=== PATIENT | male | born 2005 | race African-American/Black ===

== ENCOUNTER 2024-07-05 22:43 | Inpatient (IN) ==
[2024-07-06 00:33] LABS: ABS Lymphocytes 1.3 10^3/uL (1.0-4.8); ABS Monocytes 0.6 10^3/uL (0.0-1.1); ABS Neutrophils 10.7 10^3/uL (1.5-7.6); ABS Nucleated RBC 0.01 10^3/ul; Eosinophil % 0.1 %; Hematocrit 44.8 % (38-53); Hemoglobin 14.7 g/dL (13.2-16.3); Mean Corpuscular Hemoglobin 30.9 pg (27-33); Mean Corpuscular Hgb Conc 32.8 g/dL (31-36); Mean Platelet Volume 7.5 fL (7.5-11.2); Nucleated Red Blood Cells % 0.1 %/100WBC (0.0-0.8); Platelet Count 233 10^3/uL (150-450); Red Blood Count 4.77 10^6/uL (4.06-5.63); Red Cell Distribution Width 13.5 % (12-17); White Blood Count 12.6 10^3/uL (3.6-10.2)
[2024-07-06 01:34] LABS: ALT 13 U/L (7-52); AST 42 U/L (13-39); Albumin 4.7 g/dL (3.2-5.2); Albumin/Globulin Ratio 1.4 (1-3); Alcohol, S < 13 mg/dL (<13); Alkaline Phosphatase 62 U/L (35-149); Anion Gap 12 mmol/L (2-16); Blood Urea Nitrogen 15 mg/dL (6-24); C Reactive Protein 76.58 mg/L (<8.01); CO2 Carbon Dioxide 23 mmol/L (22-32); Calcium 9.6 mg/dL (8.6-10.3); Chloride 97 mmol/L (101-111); Globulin 3.3 g/dL (2-4); Glucose 112 mg/dL (70-100); Potassium 3.9 mmol/L (3.5-5.0); Sodium 132 mmol/L (135-145); Total Bilirubin 1.2 mg/dL (0.2-1.0); eGFR CKD-EPI 88.8 (>60)
[2024-07-06 01:36] LABS: Rapid Strep Molecular Negative (Negative)
[2024-07-06] MEDS: Acetaminophen IV 1 GM/100ML 1,000 MG/100 ML BAG IV ONE (01:49)
[2024-07-06] MEDS: Ondansetron 4 mg VIAL 2 MG/ML 2 ml VIAL IV ONE (01:49)
[2024-07-06] MEDS: Lactated Ringers 1000 ml BAG 1,000 ML IV ONE (01:49)
[2024-07-06 03:45] LABS: Body Fluid Source Cerebral Spinal
[2024-07-06] MEDS ORDERED: Vancomycin 1,000 MG VIAL IVPB SCH (04:00)
[2024-07-06] MEDS: cefTRIAXone 2 gm/50 mL D5W 2 GM/50 ML BAG IV ONE (04:08)
[2024-07-06 04:20] LABS: CSF Glucose 73 mg/dL (40-70)
[2024-07-06 04:42] LABS: Body Fluid Appearance Clear; Body Fluid Color Colorless; CSF Tube # 4
[2024-07-06] MEDS: Vancomycin 1,000 MG - ED ONCE IVPB ONE (04:56)
[2024-07-06 05:12] LABS: CSF Body Fluid WBC 2 /mcL
[2024-07-06 05:27] LABS: Body Fluid Mono 10 %; Body Fluid Total Cells Counted 10
[2024-07-06 05:51] LABS: Urine Appearance Clear; Urine Bilirubin Negative (Negative); Urine Blood Negative (Negative); Urine Color Light-Yellow; Urine Glucose Negative (Negative); Urine Ketones Negative (Negative); Urine Nitrite Negative (Negative); Urine Protein Trace (Negative); Urine Specific Gravity 1.015 (1.002-1.030); Urine Urobilinogen Negative (Negative)
[2024-07-06 06:04] LABS: Urine Benzodiazepine Screen None Detected (None Detect); Urine Cannabinoids Screen Presumptive Positive (None Detect); Urine Opiates Screen None Detected (None Detect)
[2024-07-06 08:38] LABS: Direct Bilirubin 0.2 mg/dL (0.03-0.18)
[2024-07-06 09:07] LABS: Hematocrit 43.1 % (38-53); Hemoglobin 14.4 g/dL (13.2-16.3); Mean Corpuscular Hemoglobin 31.3 pg (27-33); Mean Corpuscular Hgb Conc 33.4 g/dL (31-36); Mean Corpuscular Volume 93.7 fL (80-97); Mean Platelet Volume 7.9 fL (7.5-11.2); Platelet Count 224 10^3/uL (150-450); Red Blood Count 4.59 10^6/uL (4.06-5.63); Red Cell Distribution Width 13.1 % (12-17)
[2024-07-06] MEDS: Lactated Ringers 1000 ml BAG 1,000 ML IV SCH (10:09)
[2024-07-06] MEDS: Acetaminophen IV 1 GM/100ML 1,000 MG/100 ML BAG IV SCH (10:09)
[2024-07-06 11:19] LABS: Anion Gap 15 mmol/L (2-16); Blood Urea Nitrogen 14 mg/dL (6-24); CO2 Carbon Dioxide 23 mmol/L (22-32); Calcium 8.9 mg/dL (8.6-10.3); Chloride 98 mmol/L (101-111); Creatinine, Serum 1.02 mg/dL (0.67-1.17); Glucose 108 mg/dL (70-100); Sodium 136 mmol/L (135-145); eGFR CKD-EPI 107.9 (>60)
[2024-07-06 11:33] LABS: Magnesium 1.7 mg/dL (1.9-2.7); Potassium Redraw 3.9 mmol/L (3.5-5.0)
[2024-07-06] MEDS: Magnesium Sulfate 2 gm BAG 2 GM/50 ML BAG IVPB ONE (17:45)
[2024-07-06] MEDS: Benzocaine/Menthol LOZ PO PRN (21:46)
[2024-07-07 09:09] LABS: ABS Lymphocytes 0.9 10^3/uL (1.0-4.8); ABS Monocytes 0.2 10^3/uL (0.0-1.1); ABS Neutrophils 5.9 10^3/uL (1.5-7.6); ABS Nucleated RBC 0.01 10^3/ul; Hematocrit 40.5 % (38-53); Hemoglobin 13.4 g/dL (13.2-16.3); Lymphocyte % 13.1 %; Mean Corpuscular Hemoglobin 31.2 pg (27-33); Mean Corpuscular Volume 94.4 fL (80-97); Mean Platelet Volume 7.8 fL (7.5-11.2); Nucleated Red Blood Cells % 0.1 %/100WBC (0.0-0.8); Platelet Count 172 10^3/uL (150-450); Red Blood Count 4.28 10^6/uL (4.06-5.63); Red Cell Distribution Width 13.6 % (12-17)
[2024-07-07 09:28] LABS: Albumin 3.5 g/dL (3.2-5.2); Albumin/Globulin Ratio 1.3 (1-3); Calcium 8.3 mg/dL (8.6-10.3); Creatinine, Serum 0.93 mg/dL (0.67-1.17); Globulin 2.7 g/dL (2-4); Potassium 3.6 mmol/L (3.5-5.0); Total Bilirubin 0.8 mg/dL (0.2-1.0); Total Protein 6.2 g/dL (6.4-8.9); eGFR CKD-EPI 120.6 (>60)
[2024-07-07] MEDS ORDERED: Benzocaine/Menthol LOZ PO PRN (10:37)
[2024-07-07] MEDS: guaiFENesin/CODIENE 100mg/10mg 5 ML UDC PO PRN (11:01)
[2024-07-07 13:20] LABS: EBV Capsid Ag IgG Ab Positive (Negative); EBV Capsid Ag IgM Ab Negative (Negative); Epstein-Barr Nuclear Antigen Positive (Negative)
[2024-07-07] MEDS ORDERED: Vancomycin per Pharmacy 1 EA NOTE FOLLOW UP SCH (14:00)
[2024-07-07] MEDS ORDERED: Sulfur Hexaflouride MICROSPHR 25 MG VIAL IV PRN (14:32)
[2024-07-07] MEDS: Vancomycin 1000 MG in NS 0.9% 250 ML IVPB SCH (15:18)
[2024-07-07 21:28] LABS: HSV 1 PCR, CSF Negative (Negative); HSV 2 PCR, CSF Negative (Negative)
[2024-07-08 05:45] LABS: ABS Lymphocytes 0.6 10^3/uL (1.0-4.8); ABS Monocytes 0.3 10^3/uL (0.0-1.1); ABS Neutrophils 5.2 10^3/uL (1.5-7.6); ABS Nucleated RBC 0.01 10^3/ul; Hematocrit 37.2 % (38-53); Hemoglobin 12.3 g/dL (13.2-16.3); Lymphocyte % 9.3 %; Mean Corpuscular Hemoglobin 31.1 pg (27-33); Mean Corpuscular Hgb Conc 32.9 g/dL (31-36); Mean Corpuscular Volume 94.4 fL (80-97); Mean Platelet Volume 8.2 fL (7.5-11.2); Nucleated Red Blood Cells % 0.2 %/100WBC (0.0-0.8); Platelet Count 147 10^3/uL (150-450); Red Blood Count 3.94 10^6/uL (4.06-5.63); Red Cell Distribution Width 13.4 % (12-17); White Blood Count 6.2 10^3/uL (3.6-10.2)
[2024-07-08 06:07] LABS: ALT 27 U/L (7-52); Albumin 3.3 g/dL (3.2-5.2); Albumin/Globulin Ratio 1.4 (1-3); Alkaline Phosphatase 48 U/L (35-149); Anion Gap 6 mmol/L (2-16); Blood Urea Nitrogen 9 mg/dL (6-24); CO2 Carbon Dioxide 25 mmol/L (22-32); Calcium 8.2 mg/dL (8.6-10.3); Chloride 103 mmol/L (101-111); Creatinine, Serum 0.89 mg/dL (0.67-1.17); Globulin 2.4 g/dL (2-4); Glucose 101 mg/dL (70-100); Sodium 134 mmol/L (135-145); Total Bilirubin 0.6 mg/dL (0.2-1.0); Total Protein 5.7 g/dL (6.4-8.9); eGFR CKD-EPI 125.8 (>60)
[2024-07-08 07:51] LABS: Potassium, Whole Blood 3.7 mmol/L (3.4-4.5)
[2024-07-08] MEDS: cefTRIAXone 2 gm/50 mL D5W 2 GM/50 ML BAG IV SCH (11:59)
[2024-07-08] MEDS: Azithromycin 500 mg/250 ml NS 500 MG/250 ML BAG IVPB SCH (13:05)
[2024-07-08 14:54] LABS: Blood Urea Nitrogen 8 mg/dL (6-24); Creatinine, Serum 1.07 mg/dL (0.67-1.17); eGFR CKD-EPI 101.9 (>60)
[2024-07-08] MEDS: Vancomycin Trough Check NOTE FOLLOW UP ONE (16:12)
[2024-07-08] MEDS: Vancomycin 1,250 MG in NS 0.9% 250 ml 250 ML IVPB SCH (21:47)
[2024-07-08 23:35] LABS: Anaplasma phagocytophilum Negative (Negative); B. miyamotoi PCR, B Negative (Negative); Babesia divergens/MO-1 Negative (Negative); Babesia ducani Negative (Negative); Ehrlichia chaffeensis Negative (Negative); Ehrlichia ewingii/canis Negative (Negative); Ehrlichia muris eauclairensis Negative (Negative)
[2024-07-09 06:50] LABS: Anion Gap 7 mmol/L (2-16); Blood Urea Nitrogen 10 mg/dL (6-24); CO2 Carbon Dioxide 25 mmol/L (22-32); Calcium 7.9 mg/dL (8.6-10.3); Chloride 103 mmol/L (101-111); Creatinine, Serum 0.89 mg/dL (0.67-1.17); Glucose 104 mg/dL (70-100); Magnesium 1.7 mg/dL (1.9-2.7); Sodium 135 mmol/L (135-145); eGFR CKD-EPI 125.8 (>60)
[2024-07-09 06:52] LABS: ABS Basophils 0.1 10^3/uL (0.0-0.1); ABS Lymphocytes 0.7 10^3/uL (1.0-4.8); ABS Monocytes 0.3 10^3/uL (0.0-1.1); ABS Neutrophils 4.7 10^3/uL (1.5-7.6); ABS Nucleated RBC 0.01 10^3/ul; Hematocrit 35.5 % (38-53); Lymphocyte % 12.7 %; Mean Corpuscular Hemoglobin 31.7 pg (27-33); Mean Corpuscular Hgb Conc 33.8 g/dL (31-36); Mean Corpuscular Volume 93.7 fL (80-97); Mean Platelet Volume 7.8 fL (7.5-11.2); Nucleated Red Blood Cells % 0.1 %/100WBC (0.0-0.8); Platelet Count 117 10^3/uL (150-450); Red Blood Count 3.79 10^6/uL (4.06-5.63); Red Cell Distribution Width 13.2 % (12-17); White Blood Count 5.7 10^3/uL (3.6-10.2)
[2024-07-09 09:57] LABS: Potassium, Whole Blood 3.9 mmol/L (3.4-4.5)
[2024-07-09 15:12] LABS: ALT 377 U/L (7-52); Albumin 3.2 g/dL (3.2-5.2); Albumin/Globulin Ratio 1.4 (1-3); Alkaline Phosphatase 70 U/L (35-149); C Reactive Protein 24.08 mg/L (<8.01); Globulin 2.3 g/dL (2-4); Total Bilirubin 0.6 mg/dL (0.2-1.0); Total Protein 5.5 g/dL (6.4-8.9)
[2024-07-09 17:06] LABS: Ferritin 3863.5 ng/mL (24-336)
[2024-07-09 17:13] LABS: HIV 4th Generation Preliminary Reactive (Nonreactive)
[2024-07-09 18:43] LABS: Total Bilirubin 0.6 mg/dL (0.2-1.0)
[2024-07-09 20:41] LABS: RBC Parasite Smear No Parasites Seen (No Parasite)
[2024-07-10 06:00] LABS: ABS Lymphocytes 0.8 10^3/uL (1.0-4.8); ABS Monocytes 0.4 10^3/uL (0.0-1.1); ABS Neutrophils 4.6 10^3/uL (1.5-7.6); ABS Nucleated RBC 0.02 10^3/ul; Hematocrit 35.4 % (38-53); Hemoglobin 12.1 g/dL (13.2-16.3); Mean Corpuscular Hemoglobin 31.6 pg (27-33); Mean Corpuscular Hgb Conc 34.2 g/dL (31-36); Mean Corpuscular Volume 92.6 fL (80-97); Mean Platelet Volume 8.3 fL (7.5-11.2); Nucleated Red Blood Cells % 0.3 %/100WBC (0.0-0.8); Platelet Count 128 10^3/uL (150-450); Red Blood Count 3.82 10^6/uL (4.06-5.63); Red Cell Distribution Width 13.1 % (12-17); White Blood Count 5.9 10^3/uL (3.6-10.2)
[2024-07-10 06:06] LABS: INR 1.11 (0.85-1.14)
[2024-07-10 06:30] LABS: Creatinine, Serum 0.87 mg/dL (0.67-1.17); Vancomycin Trough 10.7 mcg/mL; eGFR CKD-EPI 126.7 (>60)
[2024-07-10] MEDS: Vancomycin Trough Check NOTE FOLLOW UP ONE (06:34)
[2024-07-10 06:35] LABS: ALT 446 U/L (7-52); Albumin 3.1 g/dL (3.2-5.2); Albumin/Globulin Ratio 1.2 (1-3); Alkaline Phosphatase 84 U/L (35-149); Anion Gap 7 mmol/L (2-16); Blood Urea Nitrogen 8 mg/dL (6-24); C Reactive Protein 19.59 mg/L (<8.01); CO2 Carbon Dioxide 28 mmol/L (22-32); Calcium 7.8 mg/dL (8.6-10.3); Chloride 100 mmol/L (101-111); Creatinine, Serum 0.88 mg/dL (0.67-1.17); Globulin 2.5 g/dL (2-4); Glucose 97 mg/dL (70-100); Sodium 135 mmol/L (135-145); Total Bilirubin 0.7 mg/dL (0.2-1.0); Total Protein 5.6 g/dL (6.4-8.9); eGFR CKD-EPI 126.2 (>60)
[2024-07-10] MEDS: Enoxaparin 40 MG/0.4 ML SYR SUBCUT SCH (11:42)
[2024-07-10] MEDS: Iohexol 350 (CONTRAST) 500 ML MDV IV ONE (12:43)
[2024-07-10 13:01] LABS: Hepatitis B Surface Antigen Nonreactive (Nonreactive)
[2024-07-10 13:06] LABS: Hepatitis A Ab IgM Negative (Negative)
[2024-07-10 13:07] LABS: Hepatitis B Core IgM Nonreactive (Nonreactive)
[2024-07-10 13:19] LABS: Hepatitis C Antibody Negative (Negative)
[2024-07-10 14:01] LABS: Adenovirus Undetected (Undetected); Bordetella parapertussis Undetected (Undetected); Bordetella pertussis Undetected (Undetected); Chlamydophila pneumoniae Undetected (Undetected); Coronavirus 229E Undetected (Undetected); Coronavirus HKU1 Undetected (Undetected); Coronavirus NL63 Undetected (Undetected); Coronavirus OC43 Undetected (Undetected); Human Metapneumovirus Undetected (Undetected); Human Rhinovirus/Enterovirus Undetected (Undetected); Influenza A Undetected (Undetected); Influenza B Undetected (Undetected); Mycoplasmoides pneumoniae Undetected (Undetected); Parainfluenza Virus 1 Undetected (Undetected); Parainfluenza Virus 2 Undetected (Undetected); Parainfluenza Virus 3 Undetected (Undetected); Parainfluenza Virus 4 Undetected (Undetected); Respiratory Syncytial Virus Undetected (Undetected); Specimen Source NASOPHARYNGEAL SWAB
[2024-07-10 18:33] LABS: Hematocrit 40.1 % (38-53); Hemoglobin 13.3 g/dL (13.2-16.3); Mean Corpuscular Hgb Conc 33.1 g/dL (31-36); Mean Corpuscular Volume 93.7 fL (80-97); Mean Platelet Volume 8.6 fL (7.5-11.2); Platelet Count 169 10^3/uL (150-450); Red Blood Count 4.28 10^6/uL (4.06-5.63); Red Cell Distribution Width 13.2 % (12-17); White Blood Count 4.5 10^3/uL (3.6-10.2)
[2024-07-10 18:40] LABS: INR 1.15 (0.85-1.14)
[2024-07-10 19:18] LABS: ABS Lymphocytes 1.1 10^3/uL (1.0-4.8); ABS Monocytes 0.5 10^3/uL (0.0-1.1); ABS Neutrophils 2.9 10^3/uL (1.5-7.6); ABS Nucleated RBC 0.01 10^3/ul; Lymphocyte % 24.8 %; Nucleated Red Blood Cells % 0.3 %/100WBC (0.0-0.8); RBC Morphology Normal (Normal)
[2024-07-10] MEDS: Iohexol 300 (CONTRAST) 10 ML SDV IV ONE (20:00)
[2024-07-11] MEDS: metroNIDAZOLE IV 500 MG/100ML 500 MG/100 ML BAG IVPB SCH (00:25)
[2024-07-11 06:37] LABS: INR 1.13 (0.85-1.14)
[2024-07-11 06:41] LABS: Hematocrit 36.1 % (38-53); Hemoglobin 12.2 g/dL (13.2-16.3); Mean Corpuscular Hemoglobin 31.4 pg (27-33); Mean Corpuscular Hgb Conc 33.8 g/dL (31-36); Red Blood Count 3.88 10^6/uL (4.06-5.63); Red Cell Distribution Width 13.3 % (12-17); White Blood Count 4.1 10^3/uL (3.6-10.2)
[2024-07-11 07:37] LABS: ALT 479 U/L (7-52); Albumin 3.3 g/dL (3.2-5.2); Albumin/Globulin Ratio 1.2 (1-3); Alkaline Phosphatase 97 U/L (35-149); Anion Gap 6 mmol/L (2-16); Blood Urea Nitrogen 9 mg/dL (6-24); CO2 Carbon Dioxide 28 mmol/L (22-32); Calcium 8.1 mg/dL (8.6-10.3); Chloride 99 mmol/L (101-111); Creatinine, Serum 0.84 mg/dL (0.67-1.17); Globulin 2.7 g/dL (2-4); Glucose 111 mg/dL (70-100); Sodium 133 mmol/L (135-145); Total Bilirubin 0.9 mg/dL (0.2-1.0); Triglycerides 208 mg/dL
[2024-07-11 07:42] LABS: ABS Monocytes 0.8 10^3/uL (0.0-1.1); ABS Neutrophils 2.3 10^3/uL (1.5-7.6); ABS Nucleated RBC 0.01 10^3/ul; Lymphocyte % 24.5 %; Mean Platelet Volume 8.6 fL (7.5-11.2); Nucleated Red Blood Cells % 0.3 %/100WBC (0.0-0.8); Platelet Count 175 10^3/uL (150-450); RBC Morphology Normal (Normal)
[2024-07-11 07:48] LABS: Potassium, Whole Blood 3.7 mmol/L (3.4-4.5)
[2024-07-11] MEDS ORDERED: Zosyn per Pharmacy NOTE FOLLOW UP SCH (09:00)
[2024-07-11] MEDS: ZOSYN 3.375 GM x ONE DOSE over 30 miuntes IV (09:10)
[2024-07-11] MEDS: ZOSYN 3.375 GM Q8H per EXTENDED INFUSION IV SCH (13:30)
[2024-07-12] MEDS ORDERED: Vancomycin Trough Check NOTE FOLLOW UP ONE (06:00)
[2024-07-12 07:50] LABS: Calcium 8.5 mg/dL (8.6-10.3); Creatinine, Serum 0.97 mg/dL (0.67-1.17); Potassium 4.4 mmol/L (3.5-5.0); eGFR CKD-EPI 114.6 (>60)
[2024-07-12 07:51] LABS: Albumin 3.7 g/dL (3.2-5.2); Albumin/Globulin Ratio 1.3 (1-3); Globulin 2.9 g/dL (2-4); Total Bilirubin 1.3 mg/dL (0.2-1.0); Total Protein 6.6 g/dL (6.4-8.9)
[2024-07-12 09:15] LABS: Hematocrit 37.9 % (38-53); Hemoglobin 12.6 g/dL (13.2-16.3); Mean Corpuscular Hemoglobin 31.4 pg (27-33); Mean Corpuscular Hgb Conc 33.2 g/dL (31-36); Mean Corpuscular Volume 94.6 fL (80-97); Red Blood Count 4.01 10^6/uL (4.06-5.63); Red Cell Distribution Width 13.3 % (12-17); White Blood Count 3.9 10^3/uL (3.6-10.2)
[2024-07-12 09:54] LABS: Mean Platelet Volume 8.7 fL (7.5-11.2); Platelet Count 232 10^3/uL (150-450)
[2024-07-12 10:01] LABS: ABS Lymphocytes 1.3 10^3/uL (1.0-4.8); ABS Monocytes 1.1 10^3/uL (0.0-1.1); ABS Neutrophils 1.4 10^3/uL (1.5-7.6); ABS Nucleated RBC 0.02 10^3/ul; Eosinophil % 0.6 %; Large Platelets Present; Nucleated Red Blood Cells % 0.6 %/100WBC (0.0-0.8); RBC Morphology Normal (Normal)
[2024-07-12 15:22] LABS: HIV-1 Ab Differentiation,P Negative (Negative); HIV-2 Ab Differentiation,P Negative (Negative)
[2024-07-12 22:48] LABS: Aspergillus (Galactomannan) Ag <0.500 index (<0.5)
[2024-07-13 05:57] LABS: Hematocrit 38.5 % (38-53); Hemoglobin 12.7 g/dL (13.2-16.3); Mean Corpuscular Hgb Conc 32.9 g/dL (31-36); Mean Corpuscular Volume 94.4 fL (80-97); Mean Platelet Volume 8.3 fL (7.5-11.2); Platelet Count 262 10^3/uL (150-450); Red Blood Count 4.08 10^6/uL (4.06-5.63); Red Cell Distribution Width 13.2 % (12-17); White Blood Count 5.3 10^3/uL (3.6-10.2)
[2024-07-13 06:31] LABS: ABS Eosinophils 0.1 10^3/uL (0.0-0.5); ABS Lymphocytes 2.2 10^3/uL (1.0-4.8); ABS Monocytes 1.3 10^3/uL (0.0-1.1); ABS Neutrophils 1.7 10^3/uL (1.5-7.6); ABS Nucleated RBC 0.02 10^3/ul; Lymphocyte % 42.5 %; Nucleated Red Blood Cells % 0.3 %/100WBC (0.0-0.8)
[2024-07-13 06:32] LABS: RBC Morphology Normal (Normal)
[2024-07-13 06:38] LABS: Calcium 8.7 mg/dL (8.6-10.3); Creatinine, Serum 0.73 mg/dL (0.67-1.17); Potassium 4.5 mmol/L (3.5-5.0); eGFR CKD-EPI 133.6 (>60)
[2024-07-13 06:56] LABS: Albumin 3.7 g/dL (3.2-5.2); Albumin/Globulin Ratio 1.3 (1-3); Globulin 2.8 g/dL (2-4); Total Bilirubin 1.4 mg/dL (0.2-1.0); Total Protein 6.5 g/dL (6.4-8.9)
[2024-07-13 12:00] LABS: TB1 Ag minus Nil Result 0.29 IU/mL; TB2 Ag minus Nil Result 0.37 IU/mL
[2024-07-13 12:04] LABS: QuantiferonTb Gold Plus Result Positive (Negative)
[2024-07-13 15:03] LABS: Dengue Fever IgG Antibody Negative (Negative); Dengue Fever IgM Antibody Negative (Negative)
[2024-07-13 22:46] LABS: Malaria Detection PCR Negative (Negative)
[2024-07-13 23:16] LABS: CMV DNA DETECT/QT, P Undetected IU/mL (Undetected)
[2024-07-14 05:13] VITALS: BP 112/54
[2024-07-14 06:47] LABS: Hematocrit 37.5 % (38-53); Hemoglobin 12.2 g/dL (13.2-16.3); Mean Corpuscular Hemoglobin 30.8 pg (27-33); Mean Corpuscular Hgb Conc 32.5 g/dL (31-36); Mean Corpuscular Volume 94.6 fL (80-97); Mean Platelet Volume 8.6 fL (7.5-11.2); Platelet Count 326 10^3/uL (150-450); Red Blood Count 3.96 10^6/uL (4.06-5.63); Red Cell Distribution Width 13.3 % (12-17); White Blood Count 8.5 10^3/uL (3.6-10.2)
[2024-07-14 07:30] LABS: Albumin 3.8 g/dL (3.2-5.2); Albumin/Globulin Ratio 1.4 (1-3); Calcium 8.4 mg/dL (8.6-10.3); Creatinine, Serum 0.88 mg/dL (0.67-1.17); Globulin 2.7 g/dL (2-4); Potassium 4.6 mmol/L (3.5-5.0); Total Bilirubin 1.3 mg/dL (0.2-1.0); Total Protein 6.5 g/dL (6.4-8.9); eGFR CKD-EPI 126.2 (>60)
[2024-07-14 08:14] LABS: ABS Eosinophils 0.1 10^3/uL (0.0-0.5); ABS Lymphocytes 2.3 10^3/uL (1.0-4.8); ABS Monocytes 1.6 10^3/uL (0.0-1.1); ABS Neutrophils 4.5 10^3/uL (1.5-7.6); ABS Nucleated RBC 0.02 10^3/ul; Eosinophil % 0.8 %; Lymphocyte % 27.6 %; Nucleated Red Blood Cells % 0.3 %/100WBC (0.0-0.8)
[2024-07-14 10:43] LABS: HIV-1 RNA Detected (Undetected); HIV-2 RNA Undetected (Undetected)
[2024-07-14 23:47] LABS: Hepatitis A Ab IgM Negative (Negative)
[2024-07-14 23:48] LABS: Hepatitis B Core IgM Nonreactive (Nonreactive)
[2024-07-15] LABS: Hepatitis C Antibody Negative (Negative)
[2024-07-15] LABS: HSV 1 PCR, B Negative (Negative); HSV 2 PCR, B Negative (Negative)
[2024-07-15 15:01] LABS: RPR Nonreactive (Nonreactive)
[2024-07-15 20:27] LABS: Hepatitis B Surface Antigen Nonreactive (Nonreactive)
[2024-07-17 16:39] LABS: T.Pallidum TP-PA Negative (Negative)
== END 2024-07-14 14:05 | disposition home or self-care (01) | DRG 153 ==
LOC: ED 22:43 → SUATTDRO 07-06 06:44 → EDHOLD 07-06 06:44 → MED 07-06 11:57
PROVIDERS: ADMIT Internal Medicine; ATTEND Student in an Organized Health Care Education/Training Program